=== PATIENT | male | born 1940 | race Caucasian/White ===

== ENCOUNTER → 2017-10-31 16:12 | Outpatient (CLI) | payer SELFPAY ==
--- NOTE | 2017-10-31 16:26 | CT_ITS ---
STUDY: CT ABDOMEN AND PELVIS WITH CONTRAST REASON FOR EXAM: Male, 77 years old. RECTAL CA, MALIGNANT NEOPLASM RADIATION DOSAGE (If Supplied By Facility): CTDIvol = ( 17.22 ) mGy, DLP = ( 730.79 ) mGycm TECHNIQUE: Transaxial images were obtained from the dome of the diaphragm to the symphysis pubis without oral contrast. 100 ml of Isovue 300 contrast was administered. Sagittal and coronal images were reconstructed. Individualized dose optimization techniques were used for this CT. COMPARISON: SEP 19, 2017 FINDINGS: The visualized lung bases are unremarkable. The visualized portions of the heart are within normal limits. There are multiple lesions noted in the liver which are likely related to metastatic disease. Normal gallbladder and extrahepatic biliary system. There are multiple lesions noted in the spleen which are likely related to metastatic disease. Normal pancreas. Normal bilateral adrenal glands. Normal right kidney. Normal left kidney. Normal visualized stomach. Normal small intestine. There are multiple colonic diverticula consistent with diverticulosis. The appendix is visualized and appears normal. There are calcifications of the abdominal aorta and vascular structures. This is consistent for atherosclerotic disease. There is no abdominal aortic aneurysm. Normal inferior vena cava. Subcentimeter mesenteric lymph nodes. Normal urinary bladder. Normal visualized prostate gland. There is a cystic mass encompassing the right hemipelvis. This mass contains calcifications and there are underlying destructive changes to the right iliac crest. There is a pathologic fracture of the right iliac crest. The mass measures 10.7 x 8.5 x 16.6 cm. Overlying soft tissue swelling of the right hip. Vertebroplasty changes at L3. There is a small umbilical hernia containing fat. There are degenerative changes of the osseous structures. There are multiple lesions noted in the bone which are likely related to metastatic disease. These appear sclerotic. CT/Abdomen/Pelvis W IV Cont ONLY IMPRESSION: Metastatic disease to the liver and spleen appear worse. 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 There is a large soft tissue component. There are multiple diverticuli of the colon. There is diverticulosis but no radiographic signs for diverticulitis. Other findings as above. Electronically Signed: Esau Wong MD at 22:03 EST , Service support ,
== END ==
PROVIDERS: Visit Provider Internal Medicine Medical Oncology
DX: C20 Malignant neoplasm of rectum (principal); C61 Malignant neoplasm of prostate; C78.5 Secondary malignant neoplasm of large intestine and rectum
CPT/HCPCS: 74176